=== PATIENT | female | born 1970 | race Caucasian/White ===

== ENCOUNTER 2019-03-07 18:42 | Emergency (ER) | payer BC ==
[~2019-03-07] VITALS: Ht 152.4 cm; Wt 57.2 kg
[2019-03-07 18:55] VITALS: BP_SYST 144
--- NOTE | 2019-03-07 19:02 | NUR ---
Patient to ER bed 8 to gown for evaluation. Side rails up.
[2019-03-07] MEDS ORDERED: IBUPROFEN 600 MG TABLET PO ONE (19:15)
[2019-03-07] MEDS ORDERED: LIDOCAINE 2%, 20 ML MDV INJ ONE (19:15)
[2019-03-07] MEDS ORDERED: SODIUM BICARBONATE 8.4% VIAL 50 MEQ/50 ML VIAL INJ ONE (19:15)
--- NOTE | 2019-03-07 19:15 | NUR ---
JORGE Hennessy at bedside examining Pt.
--- NOTE | 2019-03-07 19:18 | NUR ---
Pt came into ER w/ c/o of right finger, third digit acute pain. Pt states the pain is 6/10, but increases to 8/10 when beinog touched or pressed on. Pt cannot recall what could have cuased this pain, but just started feeling it getting worse throughout the day. Finger appears slightly red, and swollen. No significant Hx noted. Will continue to monitor.
[2019-03-07] MEDS ORDERED: DIPH-TET-PERTUS Vaccine 0.5 ML VIAL (ADACEL) I.M. ONE (20:00)
[2019-03-07 20:10] VITALS: BP_SYST 115
--- NOTE | 2019-03-07 20:10 | NUR ---
Patient given written and verbal discharge instructions and verbalizes understanding. ER MD discussed with patient the results and treatment provided. Patient in stable condition. ID arm band removed. Rx ofKeflex, Motrin, and Mupirocin given. Patient educated on pain management and to follow up with PMD. Pain Scale 0/10. Opportunity for questions provided and answered. Medication side effect fact sheet provided.
== END 2019-03-07 20:10 | disposition home or self-care (01) ==
LOC: SED 18:42
DX: L03.011 Cellulitis of right finger (principal); R03.0 Elevated blood-pressure reading, without diagnosis of hypertension
CPT/HCPCS: 29130; 90471; 90715; 99283; J2001